=== PATIENT | male | born 1995 | race African-American/Black ===

== ENCOUNTER 2017-04-03 18:49 | Emergency (ER) | payer OTHER ==
[~2017-04-03] VITALS: Ht 177.8 cm; Wt 73.2 kg
[2017-04-03 18:55] VITALS: BP 133/81; TEMP 97.6
[2017-04-03 20:11] VITALS: PULSE 88
== END 2017-04-03 20:10 | disposition home or self-care (01) ==
LOC: COL.ER 18:49
DX: S09.90XA Unspecified injury of head, initial encounter (principal); S00.83XA Contusion of other part of head, initial encounter; W51.XXXA Accidental striking against or bumped into by another person, initial encounter; Y92.321 Football field as the place of occurrence of the external cause; Y93.61 Activity, american tackle football
CPT/HCPCS: J1885

== ENCOUNTER 2017-09-05 21:01 | Emergency (ER) | payer OTHER ==
[~2017-09-05] VITALS: Ht 177.8 cm; Wt 75.0 kg
[2017-09-05 21:11] VITALS: BP 121/92; TEMP 98.8
[2017-09-05] MEDS ORDERED: ZYRTEC 10MG10 MG PO (21:13)
[2017-09-05 22:36] VITALS: PULSE 82
== END 2017-09-05 22:37 | disposition home or self-care (01) ==
LOC: COL.ER 21:01
DX: R04.2 Hemoptysis (principal); J45.909 Unspecified asthma, uncomplicated

== ENCOUNTER 2018-12-09 15:52 | Emergency (ER) | payer OTHER ==
[~2018-12-09] VITALS: Ht 177.8 cm; Wt 81.8 kg
[~2018-12-09 15:52] MED LIST: ZYRTEC 10MG10 MG PO
[2018-12-09] MEDS ORDERED: PERCOCET 325 MG1 TA2 PO (17:47)
[2018-12-09] MEDS ORDERED: MEDROL 4MG DOSPA4 MG PO (17:47)
[2018-12-09 18:52] VITALS: BP 124/73; PULSE 79
== END 2018-12-09 19:05 | disposition home or self-care (01) ==
LOC: COL.ER 15:52
DX: M54.17 Radiculopathy, lumbosacral region (principal); J45.909 Unspecified asthma, uncomplicated
CPT/HCPCS: J1170; J2060; J7512

== ENCOUNTER 2019-05-26 21:13 | Emergency (ER) | payer OTHER ==
[~2019-05-26] VITALS: Ht 177.8 cm; Wt 81.8 kg
[~2019-05-26 21:13] MED LIST changes: +MEDROL 4MG DOSPA4 MG PO; +PERCOCET 325 MG1 TA2 PO
[2019-05-26 21:18] VITALS: TEMP 97.7
[2019-05-27 00:47] VITALS: BP 140/81; PULSE 84
== END 2019-05-27 00:50 | disposition short-term general hospital (02) ==
LOC: COL.ER 21:13
DX: R32 Unspecified urinary incontinence (principal); Z86.69 Personal history of other diseases of the nervous system and sense organs
CPT/HCPCS: J1100; J1170; J2060

== ENCOUNTER 2019-08-24 20:29 | Emergency (ER) | payer OTHER ==
[~2019-08-24] VITALS: Ht 177.8 cm; Wt 84.1 kg
[2019-08-24 20:42] VITALS: BP 142/89; TEMP 99
[2019-08-24 21:28] LABS: BASO # 0.1 (0.0-0.2); BASO % 0.7 % (0.0-2.0); EOS # 0.3 (0.0-0.7); EOS % 4.7 % (0-4.0); GRAN # 3.9 (1.4-6.5); GRAN % 56.1 % (42.2-75.2); HEMATOCRIT 44.8 % (42.0-52.0); HEMOGLOBIN 14.5 g/dl (13.5-18.0); LYMPH # 2.3 (1.2-3.4); LYMPH % 32.5 % (20.0-51.0); MEAN CELL VOLUME 83 fl (80.0-100.0); MEAN CORPUSCULAR HEMOGLOBIN 27 pg (27.0-31.0); MEAN CORPUSCULAR HGB CONC 32 g/dl (33.0-37.0); MEAN PLATELET VOLUME 9.3 fl (7.4-10.4); MONO # 0.4 (0.1-0.6); MONO % 5.6 % (1.7-9.3); PLATELET COUNT 199 K/mm3 (130-400); RED BLOOD COUNT 5.42 M/mm3 (4.20-5.60); REDCELL DISTRIBUTION WIDTH-CV 12.2 % (11.5-14.5)
[2019-08-24 21:41] LABS: ALANINE AMINOTRANSFERASE 26 U/L (21-72); ALBUMIN 4.2 gm/dL (3.5-5.0); ALKALINE PHOSPHATASE 80 U/L (50-136); ANION GAP 10 mmol/L (7-16); AST,SGOT 29 U/L (15-37); BILIRUBIN,TOTAL 0.9 mg/dL (0.0-1.0); BLOOD UREA NITROGEN 19 mg/dL (9-20); CALCIUM 9.4 mg/dL (8.4-10.2); CARBON DIOXIDE 22 mmol/L (22-30); CHLORIDE 105 mmol/L (98-107); CREATININE, serum 1.09 (0.66-1.25); GLUCOSE 135 mg/dL (74-106); POTASSIUM 4.1 mmol/L (3.4-5.0); SODIUM 138 mmol/L (137-145); TOTAL PROTEIN 7.1 gm/dL (6.4-8.2)
[2019-08-24 21:52] LABS: LIPASE 146 U/L (23-300)
[2019-08-24 22:04] LABS: TROPONIN-I < 0.012 ng/mL (0.000-0.035)
[2019-08-24 22:51] VITALS: PULSE 80
== END 2019-08-24 22:53 | disposition home or self-care (01) ==
LOC: COL.ER 20:29
PROVIDERS: Emergency Medicine
DX: R07.89 Other chest pain (principal); J45.909 Unspecified asthma, uncomplicated